=== PATIENT | male | born 2005 | race Two or more races ===

== ENCOUNTER 2024-02-27 09:17 | Emergency (ER) | payer MEDICAID, OTHER ==
[~2024-02-27] VITALS: Ht 170.2 cm; Wt 96.4 kg
[2024-02-27 09:48] VITALS: BP 128/78; PULSE 62; RESP 14; TEMP 98; O2SAT 98
[2024-02-27] MEDS ORDERED: IBUP-1456 PO (09:51)
[2024-02-27] MEDS ORDERED: CEPH500C PO (09:51)
--- NOTE | 2024-02-27 09:54 | ED.PDOC ---
Musculoskeletal HPI Comments A 18 YEAR OLD MALE PRESENTS TO THE ED WITH COMPLAINT OF INGROWN TOENAIL OF RIGHT GREAT TOE. PATIENT STATES HE HAS HAD REDNESS, SWELLING, AND PAIN TO HIS RIGHT GREAT TOE FOR THE PAST 1 WEEK AND IS CONCERNED THAT HE MAY HAVE AN INGROWN TOENAIL. PATIENT DENIES INJURY TO THE AFFECTED AREA, FEVER, CHILLS, SHORTNESS OF BREATH, CHEST PAIN, ABDOMINAL PAIN, NAUSEA, VOMITING, HEADACHE, OR OTHER COMPLAINTS. NO OTHER SYMPTOMS OR MODIFYING FACTORS AT THIS TIME. PATIENT IS ALERT, ORIENTED X 4, AND HAS STEADY GAIT. Chief Complaint: Lower Extremity Time Seen by MD: 09:28 Reviewed Notes: Nurses Notes, Medications, Allergies Allergies: Coded Allergies: NO KNOWN ALLERGIES (Unverified , 02/27/24) Home Meds Active Scripts Cephalexin Monohydrate (Cephalexin) 500 Mg Cap, 1 CAP PO QID, #40 CAP Prov:MACARENA FAROOQ 02/27/24 Ibuprofen (Ibuprofen) 800 Mg Tab, 1 TAB PO TID, #30 TAB Prov:MACARENA FAROOQ 02/27/24 Information Source: Patient Mode of Arrival: Ambulatory Location: Right Extremity Location: Great Toe Timing: Days Prehospital treatment: None Severity: Moderate Able to Move Extremity: Yes Bear Weight: Fully Pain: Moderate Mechanism: No Trauma, Spontaneous Circumstances: Spontaneous Onset of Symptoms: After Trauma Symptoms: Swelling, Pain, Erythema DVT Risk Factors: NONE Last Tetanus: UTD Associated signs and symptoms: Foot pain (RIGHT GREAT TOE PAIN ), Other (RIGHT GREAT TOE PAIN) Past Medical History PAST MEDICAL HISTORY: Denies Surgical History: Denies all surgeries Family History Family History: Reviewed,noncontributory to illness Social History Smoker: Non-Smoker Alcohol: Denies ETOH Use Drugs: Denies Drug Use Lives In: Home Constitutional: denies: chills, diaphoresis, fatigue, fever, malaise, sweats, weakness, others EENTM: denies: blurred vision, double vision, ear bleeding, ear discharge, ear drainage, ear pain, ear ringing, eye pain, eye redness, hearing loss, mouth pain, mouth swelling, nasal discharge, nose bleeding, nose congestion, nose pain, photophobia, tearing, throat pain, throat swelling, voice changes, others Respiratory: denies: cough, hemoptysis, orthopnea, SOB at rest, shortness of breath, SOB with excertion, stridor, wheezing, others Cardiovascular: denies: chest pain, dizzy spells, diaphoresis, Dyspnea on exertion, edema, irregular heart beat, left arm pain, lightheadedness, palpitations, PND, syncope, others Gastrointestinal: denies: abdomen distended, abdominal pain, blood streaked bowels, constipated, diarrhea, dysphagia, difficulty swallowing, hematemesis, melena, nausea, poor appetite, poor fluid intake, rectal bleeding, rectal pain, vomiting, others Genitourinary: denies: burning, dysuria, flank pain, frequency, hematuria, incontinence, penile discharge, penile sore, pain, testicle pain, testicle swelling, urgency, others Neurological: denies: dizziness, fainting, headache, left sided numbness, left sided weakness, numbness, paresthesia, pre-existing deficit, right sided nu mbness, right sided weakness, seizure, speech problems, tingling, tremors, weakness, others Musculoskeletal: reports: joint pain; denies: back pain, gout, joint swelling, muscle pain, muscle stiffness, neck pain, others Integumetry: reports: others (INGROWN TOENAIL OF RIGHT GREAT TOE WITH REDNESS AND SWELLING); denies: bruises, change in color, change in hair/nails, dryness, laceration, lesions, lumps, rash, wounds Allergic/Immunocompromised: denies: Difficulty Healing, Frequent Infections, Hives, Itching, others Hematologic/Lymphatic: denies: anemia, blood clots, easy bleeding, easy bruising, swollen glands, others Endocrine: denies: excessive hunger, excessive sweating, excessive thirst, excessive urination, flushing, intolerance to cold, intolerance to heat, unexplained weight gain, unexplained weight loss, others Psychiatric: denies: anxiety, bipolar disorder, depression, hopeless, panic disorder, schizophrenia, sleepless, suicidal, others All Other Systems: Reviewed and Negative Physical Exam General Appearance: No Apparent Distress, Normal HEENT: Normal ENT Inspection, PERRL/EOMI, Pharynx Normal, TMs Normal Neck: Full Range of Motion, Non-Tender, Normal, Normal Inspection Respiratory: Chest Non-Tender, Lungs Clear, No Accessory Muscle Use, No Respiratory Distress, Normal Breath Sounds Cardiovascular: No Edema, No JVD, No Murmur, No Gallop, Normal Peripheral Pulses, Regular Rate/Rhythm Breast Exam: Deferred Gastrointestinal: No Organomegaly, Non Tender, No Pulsatile Mass, Normal Bowel Sounds, Soft Genitalia: Deferred Pelvic: Deferred Rectal: Deferred Extremities: No calf tenderness, Normal capillary refill, Normal range of motion, No pedal edema, Tender (WITH LOCALIZED REDNESS, SWELLING AND INGROWN TOENAIL ON RIGHT GREAT TOENAIL, NO BONY TENDERNESS AND DEFORMITY. ) Musculoskeletal : Apperance: Normal Neurologic: Alert, hand sprayer II-XII nml as Tested, No Motor Deficits, Normal Affect, Normal Mood, No Sensory Deficits Cerebellar Function: Normal Reflexes: Normal Skin: Dry, Warm, Wounds (LOCALIZED REDNESS, SWELLING AND TENDERNESS ON RIGHT GREAT TOENAIL, +INGROWN TOENAIL. ) Peripheral Pulses: 2+ carotid (R), 2+ carotid (L), 2+ dorsalis pedis (R), 2+ dorsalis pedis (L) Lymphatic: No Adenopathy Was a procedure done? Was a procedure done?: No Differential Diagnosis EXT Differential Diagnosis: Sprain, Strain Other Differential Diagnosis PARONYCHIA, INGROWN TOENAIL X-Ray, Labs, Meds, VS Vital Signs Date Time Temp Pulse Resp B/P (MAP) Pulse Ox O2 Delivery O2 Flow Rate FiO2 02/27/24 09:48 62 14 98 Room Air 02/27/24 09:48 98.0 62 14 128/78 (95) 98 98.0 02/27/24 09:26 98.0 62 14 128/78 (95) 98 Time of 1ST Reevaluation: 10:10 Reevaluation 1ST: Improved Patient Education/Counseling: Diagnosis, Treatment, Need For Follow Up Family Education/Counseling: Diagnosis, Treatment, Need For Follow Up Medical Screening: No EMC Exist At This Time Departure 1 Departure Time of Disposition: 10:10 Impression: Primary Impression: Ingrown right greater toenail Disposition: 01 HOME / SELF CARE / HOMELESS Condition: Stable Additional Instructions: FOLLOW-UP WITH PCP IN 1 TO 2 DAYS. TAKE MEDICATIONS PRESCRIBED. RETURN TO ED FOR ANY NEW OR WORSENING SYMPTOMS. e-Prescriptions Cephalexin Monohydrate (Cephalexin) 500 Mg Cap 1 CAP PO QID, #40 CAP Prov: MACARENA FAROOQ 02/27/24 Ibuprofen (Ibuprofen) 800 Mg Tab 1 TAB PO TID, #30 TAB Prov: MACARENA FAROOQ 02/27/24 Discharged With: Self Critical Care Note Critical Care Time?: No Stability Stability form required: No I personally scribed for MACARENA FAROOQ ([email or web address]) on 02/27/24 at 09:54. Electronically submitted by Mina Myrick ([email or web address]). MACARENA FAROOQ Feb 27, 2024 09:54
== END 2024-02-27 09:57 | disposition home or self-care (01) ==
LOC: ER 09:17
DX: L60.0 Ingrowing nail (principal); Z79.1 Long term (current) use of non-steroidal anti-inflammatories (NSAID); Z79.899 Other long term (current) drug therapy